=== PATIENT | female | born 2000 | race Caucasian/White ===

== ENCOUNTER 2021-04-20 05:30 | Emergency (ER) | payer BC, SELFPAY ==
[2021-04-20 05:31] VITALS: BP 129/87; PULSE 90; RESP 18; TEMP 36.7; O2SAT 100; BMI 19.9
--- NOTE | 2021-04-20 05:37 | CT_ITS ---
HISTORY: right flank/back pain. ? GIULIANO INJURY 2 DAYS AGO. IUD EXAMINATION: CT Abdomen And Pelvis W/O Contrast Injection TECHNIQUE: Helically acquired images were obtained of the abdomen and pelvis without oral or IV contrast. A radiation dose optimization technique was used for this scan. IV Contrast dosage and agent: None. Oral contrast: None. COMPARISON: None FINDINGS: LOWER CHEST: Punctate peripheral nodule lateral right middle lobe, likely benign postinfectious etiology. No acute basilar airspace disease. Heart normal size. LIVER: Homogeneous. No concerning lesion. GALLBLADDER AND BILIARY TREE: No calcified gallstones. No pericholecystic edema detected. No significant biliary ductal dilation. KIDNEYS AND URETERS: Kidneys are normal size. Tiny 2 mm stone within mid right kidney. No ureteral stones identified. No perinephric inflammation or hydroureteronephrosis. ADRENAL GLANDS: Non-enlarged. SPLEEN: Normal size without discrete mass. PANCREAS: No discrete mass or peripancreatic inflammation. BOWEL: Normal appendix medial to the cecum within right lower quadrant. Slightly prominent colonic fecal load. No abnormal stomach or bowel distension. No focal inflammatory change observed. LYMPH NODES: No enlarged mesenteric or retroperitoneal lymph nodes. PERITONEUM: Small amount of free fluid within posterior cul-de-sac. No free air. VESSELS: Major vessels are normal caliber and unremarkable. URINARY BLADDER: Unremarkable. REPRODUCTIVE ORGANS: IUD in place. No large adnexal cyst. ABDOMINAL WALL: No acute findings or significant hernia defect. BONES: Intact with no suspicious osseous lesion. CT/Abdomen/Pelvis without Cont IMPRESSION: 1. Small amount of free pelvic fluid. 2. Tiny nonobstructing right renal stone. 3. Probable mild constipation, correlate clinically. 4. IUD in place. Individualized dose optimization techniques were used for this CT. at 0701 Reported and signed by: Jef Bolanos MD Electronically Signed: Jef Bolanos MD at 7:00 EDT Tel , Service support ,
--- NOTE | 2021-04-20 05:40 | ED.VIS.BACK ---
HPI History of Present Illness Chief Complaint: Back Informant: patient Onset/Context/Timing Onset: Days (2) Context: Gradual Onset Timing: Continuous and Waxes and wanes Quality: Aching Location: Lumbar (right only) Current Severity: Severe Maximum Severity: Severe Worsened by: improves with Movement (especially twisting to the right about the torso) Relieved by: Nothing Associated Symptoms Associated Symptoms: Negative for Numbness, Tingling, Radiation to Right Leg, Radiation to Left Leg, Abdominal Pain, Dysuria, Urinary Retention, Urinary Incontinence and Fecal Incontinence Narrative Narrative: 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 She did not feel like she was injured but after she got up her neck was sore and then her back was sore so her life skills coach who is a chiropractor did some adjustments and she suddenly felt back to normal so she went about practicing. Later she started having back discomfort, it has progressed, she was able to stretch it out at one point but this morning she woke up in agonizing pain, it hurts more to move in certain ways, she wanted to use a muscle roller and roll it out but she did not have one available. She took 2 ibuprofen tablets prior to coming and is still in a lot of discomfort. She denies any associated nausea or vomiting. She has a history of stones in both of her kidneys, she does not know if she ever passed 1, nor does she know if she ever had pain with them they were found incidentally. She has no other medical problems and is healthy. No recent illnesses. No hematuria or dysuria. No radiation of the pain down her legs, no bowel or bladder dysfunction or saddle anesthesia. [facility] Medical History History of kidney stones Home Medications mecobalamin (vitamin B12) 1,000 mcg PO DAILY 04/20/21 [History Last Taken Unknown] orphenadrine citrate 100 mg PO BID PRN #14 tab 04/20/21 [Rx Last Taken Unknown] Allergy/AdvReac Type Severity Reaction Status Date / Time No Known Allergies Allergy Verified 04/20/21 05:37 Surgical History (Updated 04/20/21 @ 05:39 by Amee Rodriguez) History of tonsillectomy Social History Smoking Status: Never smoker ROS ROS ED Constitutional Constitutional ED: Denies chills or fever(s) Eyes Eyes: Denies change in vision or diplopia ENT ENT ED: Denies rhinorrhea or sore throat Cardiovascular Cardiovascular: Denies chest pain or palpitations Respiratory/Chest Respiratory/Chest: Denies cough or dyspnea Gastrointestinal Gastrointestinal: Denies abdominal pain, diarrhea, nausea or vomiting Genitourinary Genitourinary ED: Denies dysuria or hematuria Musculoskeletal Musculoskeletal: Reports back pain; Denies neck pain Integumentary Denies abscess or rash Neurologic Neurologic: Denies headache(s), paresthesias or weakness Psychiatric Psychiatric: Denies anxiety or suicidal thoughts EXAM Physical Exam Const Vital Signs: 04/20/21 05:31 Temperature 98.1 F Temperature Source Temporal Pulse Rate 90 Respiratory Rate 18 Blood Pressure 129/87 H Blood Pressure Mean 101 Pulse Ox 100 Oxygen Delivery Method Room Air Positive well nourished and well developed Constitutional Narrative: Tearful in pain, but no distress General Appearance ED: well developed and NAD HEENT Reports moist mucous membranes normocephalic and atraumatic Eyes PERRL and EOMs intact bilaterally Neck full ROM and supple Resp normal respiratory effort and clear to auscultation bilaterally Cardio regular rate, regular rhythm and no murmurs GI non-tender and non-distended Auscultation: normoactive bowel sounds Palpation: soft Back/Spine no CVA tenderness and normal to inspection Back/Spine Narrative: Not able to reproduce pain with palpation only General Back: other FROM, but with pain in certain motions Extremity normal to inspection General Extremety ED: Negative for edema, pulses abnormal or tenderness General Extremity: Negative for edema or pulses abnormal Neuro oriented x3, CN's II-XII intact bilaterally, no sensory deficits noted and gait normal Sensorium / Orientation: awake and alert Motor Exam: strength 5/5 throughout Skin no rashes or lesions noted and no wounds MDM MDM MDM Narrative Medical decision making narrative: Differential includes musculoskeletal pain with or without muscle spasm, renal injury, kidney stone, pyelonephritis. CT scan obtained as well as labs and urinalysis, negative, labs noted below which are all normal including her urine. CT is basically negative, I discussed the incidental findings with patient and mother and I think that they are unrelated to her current pain. Certainly is possible that she passed a kidney stone we are not seen now, but I think this is musculoskeletal since she is having so much trouble moving around. After IV Norflex and a dose of morphine 2 mg which was given because she is a relatively small adult girl (although very tall), these medicines help significantly and her back pain was almost completely resolved, she can move around without any difficulty. Reassured, I feel safe discharging her home, she asks if she can play rugby, I think it is reasonable to have her do whatever she can tolerate. She was prescribed a muscle relaxer in case she needs it for recurrent pain and advised to continue using heat or ice and anti-inflammatories as needed. Lab Data Attestation: I reviewed the patient's lab results. Labs: Laboratory Results - last 24 hr 04/20/21 04/20/21 04/20/21 05:40 05:40 05:43 WBC 6.6 RBC 4.37 Hgb 11.6 L Hct 37.7 MCV 86.3 MCH 26.5 L MCHC 30.8 L RDW Std Deviation 48.7 H RDW Coeff of Amanda 15.3 H Plt Count 304 MPV 10.0 Immature Gran % (Auto) 0.200 Neut % (Auto) 48.5 Lymph % (Auto) 34.2 [place] % (Auto) 14.1 H Eos % (Auto) 2.7 Baso % (Auto) 0.3 Absolute Neuts (auto) 3.2 Absolute Lymphs (auto) 2.26 Nucleated RBC % 0 Sodium 140 Potassium 3.5 Chloride 109 H Carbon Dioxide 25.0 Anion Gap 6 BUN 11 Creatinine 0.55 Estim Creat Clear Calc 156.58 Est GFR (MDRD) Af Amer 178 Est GFR (MDRD) Non-Af 147 BUN/Creatinine Ratio 20.0 Glucose 95 Calcium 8.5 Urine Color Yellow Urine Clarity Clear Urine pH 6.5 Ur Specific [place] 1.015 Urine Protein Negative Urine Glucose (UA) Normal Urine Ketones Negative Urine Occult Blood Negative Urine Nitrite Negative Urine Bilirubin Negative Urine Urobilinogen Normal Ur Leukocyte Esterase Negative Urine RBC 0 SEEN Urine WBC 0 SEEN Ur Squamous Epith Cells 0-5 SEEN Urine Bacteria 1+ Urine Mucus 0 SEEN Urine Test Negative Radiography Diagnostic Testing: Radiology Impression Abdomen/Pelvis CT 04/20/21 05:37 IMPRESSION: 1. Small amount of free pelvic fluid. 2. Tiny nonobstructing right renal stone. 3. Probable mild constipation, correlate clinically. 4. IUD in place. Individualized dose optimization techniques were used for this CT. at 0701 Reported and signed by: Jef Bolanos MD Electronically Signed: Jef Bolanos MD at 7:00 EDT Tel , Service support , Discharge Plan Triage Chief Complaint: Back ED Provider: Ruben Foster Dx/Rx/DC Orders Clinical Impression: Acute lumbosacral myofascial strain Instructions: ED Back Sprain/Strain Prescriptions: New orphenadrine citrate 100 mg tablet extended release 100 mg PO BID PRN (Reason: muscle spasm) Qty: 14 RF: 0 No Action mecobalamin (vitamin B12) 1,000 mcg Tablet,Chewable 1,000 mcg PO DAILY RF: 0 Primary Care Provider: Jersey Acnua Referrals: Jersey Acuna MD [Primary Care Provider] - 1 Week if not improving Disposition Disposition: Home, Self Care
[2021-04-20 05:45] LABS: Absolute Lymphocyte Count 2.26 X10^3/uL (0.83-4.51); Absolute Neutrophil Count 3.2 X10^3/uL (2.0-7.7); Basophil# 0.02 X10^3/uL; Basophil% 0.3 % (0-1); Eosinophil# 0.18 X10^3/uL; Eosinophils% 2.7 % (0-5); Hematocrit 37.7 % (37-47); Hemoglobin 11.6 g/dL (12.0-15.0); Lymphocyte # 2.26 X10^3/ul (0.83-4.51); Lymphocyte % 34.2 % (19-41); Mean Corp Hgb Conc 30.8 g/dL (32-36); Mean Corpuscular Hgb 26.5 pg (27.0-32.0); Mean Corpuscular Volume 86.3 fL (81-99); Monocyte# 0.93 X10^3/uL; Monocyte% 14.1 % (0-10); NRBC Flagged by Analyzer 0 % (0-5); Neutrophil % 48.5 % (47-70); Platelet Count 304 K/mm3 (150-450); RBC Distribution Width CV 15.3 % (11.6-14.6); RBC Distribution Width SD 48.7 fl (35.1-43.9); Red Blood Count 4.37 M/mm3 (4.2-5.4); White Blood Count 6.6 K/mm3 (4.4-11.0)
[2021-04-20 05:50] LABS: Mucous, Urine 0 SEEN /hpf (<or=2+); Red Blood Cells-Urine 0 SEEN /hpf (0-5); White Blood Cells 0 SEEN /hpf (0-5)
[2021-04-20 05:56] LABS: Color, Urine Yellow (Yellow); Glucose, Dipstick Normal (Normal); Ketone-Dipstick Negative (Negative); Leukocyte Esterase-Dipstick Negative /ul (Negative); Nitrite-Dipstick Negative (Negative); Occult Blood-Urine Negative /ul (Negative); Protein-Dipstick Negative (Negative); Specific Gravity, Urine 1.015 (1.002-1.030); Urine Bilirubin Dipstick Negative (Negative); Urine Clarity Clear (Clear); Urine Urobilinogen Normal (Normal); Urine pH 6.5 (5.0 - 8.0)
[2021-04-20] MEDS: Orphenadrine 60 MG/2 ML Ampul IV (05:56)
[2021-04-20 06:04] LABS: Bacteria 1+ /hpf (None Seen); Internal QC Validated? YES +Cl - CLEAR BKGD; Pregnancy, Urine Negative Negative; Squamous Epithelial Cells - UA 0-5 SEEN /hpf (5-10)
[2021-04-20 06:09] LABS: Anion Gap 6 (5-15); BUN 11 mg/dL (7-18); Calcium,Total 8.5 mg/dL (8.5-10.1); Chloride 109 mmol/L (98-107); Creatinine, Serum 0.55 mg/dL (0.55-1.02); EST Glomerular Filtration Rate 147 mL/min (>60); Est Glom Filt Rate - Afr Amer 178 mL/min (>60); Estimated Creatinine Clearance 156.58 ml/min; Glucose 95 mg/dL (74-106); Potassium 3.5 mmol/L (3.5-5.1); Sodium Level 140 mmol/L (136-145)
== END 2021-04-20 08:55 | disposition home or self-care (01) ==
PROVIDERS: Emergency Provider Emergency Medicine; PCP Pediatrics
DX: S39.012A Strain of muscle, fascia and tendon of lower back, initial encounter (principal); W03.XXXA Other fall on same level due to collision with another person, initial encounter; Y93.63 Activity, rugby; Y92.9 Unspecified place or not applicable; Y99.8 Other external cause status; Z87.442 Personal history of urinary calculi
CPT/HCPCS: 74176; 80048; 81001; 81025; 85025; 96374; 99284; A4216; J2405